=== PATIENT | male | born 1955 | race African-American/Black ===

== ENCOUNTER 2019-06-20 16:09 | Emergency (ER) | payer BC ==
[~2019-06-20] VITALS: Ht 182.9 cm; Wt 83.5 kg
[2019-06-20 16:59] VITALS: Ht 182.9 cm; Wt 83.5 kg
[2019-06-20 19:36] VITALS: BP 146/96
== END 2019-06-20 19:36 | disposition home or self-care (01) ==
LOC: ED 16:09
DX: S39.011A Strain of muscle, fascia and tendon of abdomen, initial encounter (principal); M10.9 Gout, unspecified; I10 Essential (primary) hypertension; X58.XXXA Exposure to other specified factors, initial encounter; Y93.89 Activity, other specified; Y92.89 Other specified places as the place of occurrence of the external cause; Y99.8 Other external cause status
CPT/HCPCS: 36415; 87491; 87591; J1885; Q0092